=== PATIENT | female | born 1980 | race Caucasian/White ===

== ENCOUNTER → 2020-10-19 18:16 | Outpatient (BNVA) | payer BC, SELFPAY | PROVIDERS: Family Provider Family Medicine; PCP Family Medicine; Visit Provider Nurse Practitioner | DX: J02.9 Acute pharyngitis, unspecified (principal) | CPT/HCPCS: 87071; 87880 ==

== ENCOUNTER 2021-01-22 08:58 | Outpatient (CLI) | payer BC, SELFPAY ==
--- NOTE | 2021-01-22 09:03 | MM_ITS ---
WS: [id number] BILATERAL DIGITAL SCREENING MAMMOGRAPHY WITH CAD CLINICAL INFORMATION: SCREENING HISTORY: Screening mammogram. No current complaints. COMPARISON: TECHNIQUE: Bilateral CC and MLO views. FINDINGS: Scattered fibroglandular densities bilaterally. A few tiny ovoid nodules anterior left breast unchang ed. No suspicious focal mass, asymmetry, calcifications, or architectural distortion. No evidence of malignancy. MM/[place] [id number] IMPRESSION: BI-RADS: 2-Benign FOLLOW UP: 1 Year Follow-up Recommend return to annual screening mammography.
== END 2021-01-22 08:59 | disposition home or self-care (01) ==
LOC: RADSHAW 09:02
PROVIDERS: Family Provider Family Medicine; PCP Family Medicine; Visit Provider Family Medicine
DX: Z12.31 Encounter for screening mammogram for malignant neoplasm of breast (principal)
CPT/HCPCS: 77067

== ENCOUNTER 2022-10-13 17:37 | Emergency (ER) | payer BC, SELFPAY ==
[2022-10-13 17:43] VITALS: BP 145/99; PULSE 98; RESP 16; TEMP 36.4; O2SAT 95
--- NOTE | 2022-10-13 18:29 | CTR_ITS ---
PROCEDURE INFORMATION: Exam: CT Abdomen And Pelvis With Contrast Exam date and time: 10/13/2022 7:10 PM Age: 42 years old Clinical indication: Abdominal pain; Epigastric; Additional info: Abd pain, R/O infection or abscess TECHNIQUE: Imaging protocol: Computed tomography of the abdomen and pelvis with contrast. Radiation optimization: All CT scans at this facility use at least one of these dose optimization techniques: automated exposure control; mA and/or kV adjustment per patient size (includes targeted exams where dose is matched to clinical indication); or iterative reconstruction. Contrast material: OMNIPAQUE 350; Contrast volume: 100 ml; Contrast route: INTRAVENOUS (IV); REPORTING DATA: Count of CT and Cardiac NM exams in prior 12 months: This patient has received 0 known CTs and 0 known cardiac nuclear medicine studies in the 12 months prior to the current study. COMPARISON: No relevant prior studies available. RADIATION DOSE METRICS: Total DLP (mGy-cm): 1244.2 FINDINGS: Liver: Hepatic steatosis. No mass. Gallbladder and bile ducts: Normal. No calcified stones. No ductal dilation. Pancreas: Normal. No ductal dilation. Spleen: Normal. No splenomegaly. Adrenal glands: Normal. No mass. Kidneys and ureters: Normal. No hydronephrosis. Stomach and bowel: Unremarkable. No obstruction. No mucosal thickening. Appendix: No evidence of appendicitis. Intraperitoneal space: Unremarkable. No free air. No significant fluid collection. Vasculature: Unremarkable. No abdominal aortic aneurysm. Lymph nodes: Unremarkable. No enlarged lymph nodes. Urinary bladder: Unremarkable as visualized. Reproductive: IUD noted in expected positioning. Bones/joints: No acute fracture. Soft tissues: Unremarkable. CT/CT abdomen pelvis w con* [id number] IMPRESSION: 1. No acute findings. 2. Hepatic steatosis.
--- NOTE | 2022-10-13 18:29 | ED_ITS ---
HPI - General Adult General: Chief complaint: General Medical Stated complaint: Abd pains, Sweats, Chills Time Seen by Provider: 10/13/22 18:22 History of Present Illness: 42-year-old female comes in today with abdominal pain going from the stomach radiating to the back, nausea and diarrhea, symptoms started last . Patient comes in today for some persistent discomfort. Patient does have some improvement in symptoms. Patient did report a low-grade fever on Wednesday. Patient denies any chronic medical problems. Patient reports no prior abdominal surgeries. Patient does have medications alprazolam and bupropion in her medication list. Associated symptoms: Reports nausea; Deny chest pain, dyspnea, rash or vomiting Review of Systems General: Reports: 10 or more systems reviewed and unremarkable except in HPI and below Const: Reports: chills Card: Denies: chest pain Resp: Denies: dyspnea GI: Reports: nausea and diarrhea; Denies: vomiting or constipation : Denies: difficulty voiding Musc: Reports: back pain Skin/Breast: Denies: rash PFSH ED PFSH: Social History Smoking and tobacco status: never smoked Physical Exam Const: COMMON NORMALS: alert HENMT: COMMON NORMALS: normocephalic HEAD & SCALP: normocephalic Neck/C-Spine: COMMON NORMALS: full ROM Resp: COMMON NORMALS: normal respiratory effort and clear to auscultation bilaterally AUSCULTATION: clear to auscultation bilaterally Cardio: COMMON NORMALS: regular rate and regular rhythm RATE: regular rate RHYTHM: regular rhythm GI: COMMON NORMALS: Soft to palpation AUSCULTATION: Yes normoactive bowel sounds PALPATION: Yes Soft to palpation and Yes Tenderness to palpation present (GI) (Mild tenderness) : COMMON NORMALS: Yes no CVA tenderness BLADDER/KIDNEY EXAM: Yes no CVA tenderness Back/Pelvis: COMMON NORMALS: no CVA tenderness and thoracic and lumbar spine normal to inspection Extremity: COMMON NORMALS: no pedal edema Neuro: SENSORIUM/ORIENTATION: Yes alert Skin: COMMON NORMALS: turgor normal GENERAL SKIN EXAM: turgor normal Course Vital Signs: Vital signs: Vital Signs Temperature 97.6 F 10/13/22 17:43 Pulse Rate 98 10/13/22 17:43 Respiratory Rate 16 10/13/22 17:43 Blood Pressure 145/99 10/13/22 17:43 Pulse Oximetry 95 10/13/22 17:43 Oxygen Delivery Me thod 10/13/22 17:43 MDM - General Adult Medical Decision Making 42-year-old female comes in today for complaints of abdominal pain with nausea and diarrhea starting on Wednesday or last week. On exam patient's abdomen soft, normal active bowel sounds, patient appears nontoxic. Vital signs are normal except for some mild elevation of blood pressure. Differential diagnosis includes but not limited to gallbladder disease, appendicitis, gastroenteritis, viral syndrome. Laboratory values noted some elevation in liver enzymes. Lipase was normal. CBC was unremarkable. Urinalysis was contaminated with large amount of blood cells. CT scan was unremarkable. Patient was treated for some mild dehydration with 1 L of IV fluid. No signs of a surgical abdomen was noted. Reviewed exam with patient with recommendations for treatment and follow-up with primary care for further evaluation or return to the ER for worsening symptoms. Lab Data 10/13/22 18:51 10/13/22 18:51 Radiology Impressions Abdomen/Pelvis CT 10/13/22 18:29 IMPRESSION: 1. No acute findings. 2. Hepatic steatosis. Laboratory Results WBC 5.0 10^3/uL (4.0-10.0) 10/13/22 18:51 RBC 5.15 10^6/uL (4.1-5.3) 10/13/22 18:51 Hgb 15.6 g/dL (11.5-15.3) H 10/13/22 18:51 Hct 46.2 % (37.0-47.0) 10/13/22 18:51 MCV 89.7 fl (81-99) 10/13/22 18:51 MCH 30.3 pg (28.0-34.0) 10/13/22 18:51 MCHC 33.8 g/dL (30.0-36.0) 10/13/22 18:51 RDW 12.9 % (12.1-15.1) 10/13/22 18:51 Plt Count 179 10^3/cmm (130-400) 10/13/22 18:51 MPV 9.1 fL (7.4-10.4) 10/13/22 18:51 Neut % (Auto) 58.4 % 10/13/22 18:51 Lymph % (Auto) 27.5 % 10/13/22 18:51 [place] % (Auto) 12.5 % 10/13/22 18:51 Eos % (Auto) 0.8 % 10/13/22 18:51 Baso % (Auto) 0.4 % 10/13/22 18:51 Neut # (Auto) 2.89 10^3/uL (1.8-7.7) 10/13/22 18:51 Lymph # (Auto) 1.4 10^3/uL (0.8-4.8) 10/13/22 18:51 [place] # (Auto) 0.6 10^3/uL (0.2-0.9) 10/13/22 18:51 Eos # (Auto) 0.0 10^3/uL (0.0-0.8) 10/13/22 18:51 Baso # (Auto) 0.0 10^3/uL (0.0-0.1) 10/13/22 18:51 Nucleated RBC % (auto) 0 % 10/13/22 18:51 Nucleated RBCs # 0.0 /100WBC 10/13/22 18:51 Sodium 136 mmol/L (136-145) 10/13/22 18:51 Potassium 3.7 mmol/L (3.5-5.1) 10/13/22 18:51 Chloride 99 mmol/L (98-107) 10/13/22 18:51 Carbon Dioxide 25 mmol/L (22-29) 10/13/22 18:51 Anion Gap 15.7 (5-19) 10/13/22 18:51 BUN 10 mg/dL (6-20) 10/13/22 18:51 Creatinine 1.0 mg/dL (0.5-0.9) H 10/13/22 18:51 GFR Calculation 60.5 mL/min (90-130) L 10/13/22 18:51 Glucose 155 mg/dL (65-115) H 10/13/22 18:51 Calculated Osmolality 284 mOsm/kg (285-295) L 10/13/22 18:51 Calcium 9.0 mg/dL (8.5-10.5) 10/13/22 18:51 Total Bilirubin 0.5 mg/dL (0.15-1.2) 10/13/22 18:51 AST 66 U/L (0-32) H 10/13/22 18:51 ALT 90 U/L (0-33) H 10/13/22 18:51 Alkaline Phosphatase 108 U/L (35-105) H 10/13/22 18:51 Total Protein 7.2 g/dL (6.6-8.7) 10/13/22 18:51 Albumin 4.2 g/dL (3.5-5.2) 10/13/22 18:51 Globulin 3.0 g/dL (1.3-4.6) 10/13/22 18:51 Lipase 24 U/L (13-60) 10/13/22 18:51 HCG, Qual Negative (Negative) 10/13/22 18:51 Urine Color Yellow (Yellow) 10/13/22 18:40 Urine Appearance Turbid (CLEAR) A 10/13/22 18:40 Urine pH 5 (5-7) 10/13/22 18:40 Ur Specific [place] 1.015 (1.005-1.030) 10/13/22 18:40 Urine Protein Neg (Negative) 10/13/22 18:40 Urine Glucose (UA) Norm (Normal) 10/13/22 18:40 Urine Ketones Negative (Negative) 10/13/22 18:40 Urine Blood 2+ (Negative) H 10/13/22 18:40 Urine Nitrate Negative (Negative) 10/13/22 18:40 Urine Bilirubin Neg (Negative) 10/13/22 18:40 Urine Urobilinogen Norm mg/dL (Negative) 10/13/22 18:40 Ur Leukocyte Esterase Negative (Negative) 10/13/22 18:40 Urine RBC 0-4 /hpf (0-2) H 10/13/22 18:40 Urine WBC 5-10 /hpf (0-5) H 10/13/22 18:40 Ur Squamous Epith Cells 25-40 /hpf (0-5) H 10/13/22 18:40 Amorphous Sediment Not Reportable 10/13/22 18:40 Urine Bacteria 3+ /hpf (NONE) H 10/13/22 18:40 Discharge Plan Discharge Patient Disposition: Home Clinical Impression: Viral syndrome, Dehydration Condition: Stable Prescriptions: No Action bupropion HCl [Wellbutrin SR] 100 mg tablet sustained-release 12 hr 100 mg PO DAILY alprazolam [Xanax] 0.5 mg tablet 0.5 mg PO .prn Discharge Orders: Discharge ED (Routine); Ordered 10/13/22 Ordered By: Adam Bentley Referrals: Kristen Ortega MD [Primary Care Provider] - Discharge Diet: Usual diet Discharge Activity: Increase activity as tolerated Patient Instructions: Viral Syndrome (ED) Activity Restrictions/Additional Instructions: Home and rest. Drink plenty of fluids. Increase diet as tolerated. Follow-up with primary care for further evaluation and instructions. Urine was cultured if it does not grow out anything that looks like a sign of infection we will contact you for antibiotic. Return to the ER for worsening symptoms such as fever greater than 100.4, blood in vomit or stool, or uncontrolled pain. Coding Level of Care Code ED Forming Tube Selector for Samara Cornell
[2022-10-13 18:58] LABS: Basophils % 0.4 %; Eosinophils % 0.8 %; Hematocrit 46.2 % (37.0-47.0); Hemoglobin 15.6 g/dL (11.5-15.3); Lymphocytes # 1.4 10^3/uL (0.8-4.8); Lymphocytes % 27.5 %; Mean Corpuscular HGB Conc 33.8 g/dL (30.0-36.0); Mean Corpuscular Hemoglobin 30.3 pg (28.0-34.0); Mean Corpuscular Volume 89.7 fl (81-99); Mean Platelet Volume 9.1 fL (7.4-10.4); Monocytes # 0.6 10^3/uL (0.2-0.9); Monocytes % 12.5 %; Neutrophils # 2.89 10^3/uL (1.8-7.7); Neutrophils % 58.4 %; Nucleated Red Blood Cells % 0 %; Platelet Count 179 10^3/cmm (130-400); Red Blood Count 5.15 10^6/uL (4.1-5.3); Red Cell Distribution Width 12.9 % (12.1-15.1)
[2022-10-13] MEDS: sodium chloride 0.9% 1,000 ML 999 ML IV (18:59)
[2022-10-13 19:02] LABS: Add Urine Culture? No; Add Urine Microscopic? YES; Bacteria Urine 3+ /hpf; Bilirubin Urine Neg (Negative); Blood Urine 2+ (Negative); Glucose Urine UA Norm (Normal); Ketones Urine Negative (Negative); Leukocyte Esterase Urine Negative (Negative); Nitrate Urine Negative (Negative); Protein Urine Neg (Negative); RBC Urine 0-4 /hpf (0-2); Specific Gravity, Urine 1.015 (1.005-1.030); Squamous Epithelial Cell Urine 25-40 /hpf (0-5); Urine Appearance Turbid (CLEAR); Urine Color Yellow (Yellow); Urobilinogen Urine Norm (Negative); pH Urine 5 (5-7)
[2022-10-13] MEDS: iohexol 350 mg/mL 500 mL Btl (per mL) IV (19:13)
[2022-10-13 19:16] LABS: Alanine Aminotransferase 90 U/L (0-33); Albumin Level 4.2 g/dL (3.5-5.2); Alkaline Phosphatase 108 U/L (35-105); Anion Gap 15.7 (5-19); Aspartate Amino Transferase 66 U/L (0-32); Blood Urea Nitrogen 10 mg/dL (6-20); Carbon Dioxide 25 mmol/L (22-29); Chloride 99 mmol/L (98-107); Glomerular Filtration Rate 60.5 mL/min (90-130); Glucose 155 mg/dL (65-115); Lipase 24 U/L (13-60); Osmolality Calculated 284 mOsm/kg (285-295); Potassium 3.7 mmol/L (3.5-5.1); Sodium 136 mmol/L (136-145); Total Bilirubin 0.5 mg/dL (0.15-1.2); Total Protein 7.2 g/dL (6.6-8.7)
[2022-10-13 19:20] LABS: HCG, Serum Qual Negative (Negative)
== END 2022-10-13 20:00 | disposition home or self-care (01) ==
PROVIDERS: Emergency Provider Nurse Practitioner Family; PCP Family Medicine
DX: B34.9 Viral infection, unspecified (principal); E86.0 Dehydration; R41.0 Disorientation, unspecified; K76.0 Fatty (change of) liver, not elsewhere classified
CPT/HCPCS: 74177; 80053; 81001; 83690; 84703; 85025; 96360; 99285; J7030; Q9967

== ENCOUNTER → 2023-01-13 17:02 | Outpatient (BNVA) | payer BC, SELFPAY | PROVIDERS: PCP Family Medicine; Visit Provider Emergency Medicine | DX: R05.9 Cough, unspecified (principal); J20.8 Acute bronchitis due to other specified organisms; J45.21 Mild intermittent asthma with (acute) exacerbation | CPT/HCPCS: 87426 ==

== ENCOUNTER 2023-11-08 22:21 | Emergency (ER) | payer BC, SELFPAY ==
[2023-11-08 22:35] VITALS: BP 168/122; PULSE 101; RESP 18; TEMP 36.4; O2SAT 98
[2023-11-08 22:41] VITALS: BP 162/104; PULSE 86; O2SAT 95
[2023-11-08 22:48] LABS: Glucose Point of Care 308 mg/dL (70-110)
[2023-11-08 23:14] LABS: Basophils % 0.4 %; Eosinophils # 0.3 10^3/uL (0.0-0.8); Eosinophils % 2.5 %; Hematocrit 42.3 % (36-47); Lymphocytes # 2.4 10^3/uL (0.8-4.8); Lymphocytes % 23.3 %; Mean Corpuscular HGB Conc 34.5 g/dL (30-55); Mean Corpuscular Hemoglobin 31.4 pg (27-33); Mean Platelet Volume 9.5 fL (7.4-10.4); Monocytes # 0.8 10^3/uL (0.2-0.9); Monocytes % 8.2 %; Neutrophils # 6.71 10^3/uL (1.8-7.7); Neutrophils % 65.3 %; Nucleated Red Blood Cells % 0 %; Platelet Count 293 10^3/cmm (157-399); Red Blood Count 4.65 10^6/uL (3.85-5.65); Red Cell Distribution Width 12.5 % (12.1-15.1); White Blood Count 10.28 10^3/uL (3.29-11.43)
[2023-11-08 23:32] LABS: Alanine Aminotransferase 34 U/L (0-33); Albumin Level 3.9 g/dL (3.5-5.2); Alkaline Phosphatase 122 U/L (35-105); Aspartate Amino Transferase 24 U/L (0-32); Blood Urea Nitrogen 14 mg/dL (6-20); Calcium 9.5 mg/dL (8.5-10.5); Carbon Dioxide 23 mmol/L (22-29); Chloride 99 mmol/L (98-107); Creatinine Clr Calc Pharmacy 119.8047; Globulin 3.2 g/dL (1.3-4.6); Glomerular Filtration Rate 77.9 mL/min (90-130); Glucose 296 mg/dL (65-115); Osmolality Calculated 287 mOsm/kg (285-295); Sodium 133 mmol/L (136-145); Total Bilirubin 0.2 mg/dL (0.15-1.2); Total Protein 7.1 g/dL (6.6-8.7)
[2023-11-08 23:38] LABS: Anion Gap 15.4 (5-19); Potassium 4.4 mmol/L (3.5-5.1)
[2023-11-08 23:42] LABS: Ketone (Acetest) Serum Negative (Negative)
[2023-11-09 00:20] LABS: Add Urine Microscopic? NO; Charge for UA Resulting for Rev
[2023-11-09 00:30] LABS: Bilirubin Urine Neg (Negative); Blood Urine Neg (Negative); Glucose Urine UA 4+ (Normal); Ketones Urine Negative (Negative); Leukocyte Esterase Urine Negative (Negative); Nitrate Urine Negative (Negative); Protein Urine Neg (Negative); Specific Gravity, Urine 1.025 (1.005-1.030); Urine Appearance Clear (CLEAR); Urine Color Light yellow (Yellow); Urobilinogen Urine Neg (Negative); pH Urine 5 (5-7)
[2023-11-09] MEDS: amlodipine 5 mg Tablet PO (00:38)
[2023-11-09 01:00] VITALS: BP 159/107; PULSE 90; RESP 16; O2SAT 95
--- NOTE | 2023-11-09 01:27 | W.ED.GENADLT ---
HPI - General Adult General: Chief complaint: General Medical Stated complaint: Blood Sugar High Time Seen by Provider: 11/08/23 23:24 History of Present Illness: 43-year-old female presents emergency department stating that she feels ill. She states she recently had received a diagnosis of type 2 diabetes. She states that she also has a history of hypertension. She states that her primary care provider did call her in a prescription for metformin as well as losartan and she has not been able to pick those up yet. She states she has had a generalized headache throughout the day. She states the headache is a squeezing type headache that is a 3 out of 10 and throbbing. She states she has been under increased stress recently. She states she did take a metformin pill from her as she did check her sugar at home and it was found to be slightly elevated. Associated symptoms: Reports malaise Review of Systems General: Reports: 10 or more systems reviewed and unremarkable except in HPI and below Const: Reports: fatigue and malaise PFS ED PFSH: Family History (Updated 11/12/23 @ 12:13 by TOBI Alfaro) Mother Colon cancer Grandmother Cancer colon Social History (Updated 11/12/23 @ 12:13 by TOBI Alfaro) Smoking and tobacco/nicotine status: current every day tobacco/nicotine user cigarettes Alcohol intake: never Physical Exam Narrative: EXAM NARRATIVE: Constitutional: the patient appears well nourished and with normal development. Vital signs reviewed as documented. HENMT: Normocephalic, atraumatic. External ears normal appearance without drainage. Nose without drainage, normal appearance. Mucus membranes moist. Neck is supple, No jugular venous distension, trachea is midline, no appreciable carotid bruits. No lymphadenopathy. No meningeal signs. Flexion, extension and lateral rotation is without pain. Eyes: Pupils are equal, round, reactive to light and accommodation. No scleral icterus. Extra-ocular movement are intact. Thorax is symmetrical and with equal rise and fall with respirations. Resp: Lungs are clear to auscultation. No wheezes, rales, crackles or ronchi at present. Cardio: Regular rate and rhythm. Positive S1, S2. No appreciable murmurs, rubs or gallops. GI: Abdominal exam reveals normal bowel sounds to all quadrants. No organomegaly. No obvious palpable masses noted. No hepatomegally appreciated. Soft, non-tender to palpation. Extremity: Extremities are non-edematous and both femoral and pedal pulses are 2+ and equal bilaterally. Moves all extremities well, sensation in all extremities. Neuro: Alert and oriented x4, person, place, time and situation. Cranial nerves II through XII are grossly intact, there is no focal neurological deficits that I can appreciate at present. Sensation intact to all extremities. 2-point discrimination intact. Light touch intact to all extremities. Motor strength in the upper and lower extremities are equal and bilateral 5/5. Psych: Cooperative, calm, normal thought process, appropriate judgment. Skin: No lesions, rashes. No gross abnormalities noted. Back: Symmetrical, no obvious deformity, No CVA tenderness Course Vital Signs: Vital signs: Vital Signs Temperature 97.6 F 11/08/23 22:35 Pulse Rate 90 11/09/23 02:10 Respiratory Rate 18 11/09/23 02:10 Blood Pressure 132/87 11/09/23 02:10 Pulse Oximetry 95 11/09/23 02:10 Oxygen Delivery Me thod Room Air 11/09/23 01:00 [facility] - General Adult Medical Decision Making Physical exam completed and documented, I did obtain a CBC which was essentially unremarkable. The CMP demonstrated a sodium of 133 and a glucose of 296. Urinalysis was positive for 4+ glucose negative for ketones. Differential Diagnosis Medication noncompliance, diabetic ketoacidosis, dehydration, electrolyte abnormality, migraine headache, Medical Records I reviewed the patient's medical records. Lab Data I reviewed the patient's lab results. 11/08/23 23:10 11/08/23 23:10 Laboratory Results WBC 10.28 10^3/uL (3.29-11.43) 11/08/23 23:10 RBC 4.65 10^6/uL (3.85-5.65) 11/08/23 23:10 Hgb 14.60 g/dL (11.27-16.99) 11/08/23 23:10 Hct 42.3 % (36-47) 11/08/23 23:10 MCV 91.0 fl (85-98) 11/08/23 23:10 MCH 31.4 pg (27-33) 11/08/23 23:10 MCHC 34.5 g/dL (30-55) 11/08/23 23:10 RDW 12.5 % (12.1-15.1) 11/08/23 23:10 Plt Count 293 10^3/cmm (157-399) 11/08/23 23:10 MPV 9.5 fL (7.4-10.4) 11/08/23 23:10 Neut % (Auto) 65.3 % 11/08/23 23:10 Lymph % (Auto) 23.3 % 11/08/23 23:10 [place] % (Auto) 8.2 % 11/08/23 23:10 Eos % (Auto) 2.5 % 11/08/23 23:10 Baso % (Auto) 0.4 % 11/08/23 23:10 Neut # (Auto) 6.71 10^3/uL (1.8-7.7) 11/08/23 23:10 Lymph # (Auto) 2.4 10^3/uL (0.8-4.8) 11/08/23 23:10 [place] # (Auto) 0.8 10^3/uL (0.2-0.9) 11/08/23 23:10 Eos # (Auto) 0.3 10^3/uL (0.0-0.8) 11/08/23 23:10 Baso # (Auto) 0.0 10^3/uL (0.0-0.1) 11/08/23 23:10 Nucleated RBC % (auto) 0 % 11/08/23 23:10 Nucleated RBCs # 0.0 /100WBC 11/08/23 23:10 Sodium 133 mmol/L (136-145) L 11/08/23 23:10 Potassium 4.4 mmol/L (3.5-5.1) 11/08/23 23:10 Chloride 99 mmol/L (98-107) 11/08/23 23:10 Carbon Dioxide 23 mmol/L (22-29) 11/08/23 23:10 Anion Gap 15.4 (5-19) 11/08/23 23:10 BUN 14 mg/dL (6-20) 11/08/23 23:10 Creatinine 0.8 mg/dL (0.5-0.9) 11/08/23 23:10 GFR Calculation 77.9 mL/min (90-130) L 11/08/23 23:10 Glucose 296 mg/dL (65-115) H 11/08/23 23:10 POC Glucose 308 mg/dL (70-110) H 11/08/23 22:45 Calculated Osmolality 287 mOsm/kg (285-295) 11/08/23 23:10 Calcium 9.5 mg/dL (8.5-10.5) 11/08/23 23:10 Total Bilirubin 0.2 mg/dL (0.15-1.2) 11/08/23 23:10 AST 24 U/L (0-32) 11/08/23 23:10 ALT 34 U/L (0-33) H 11/08/23 23:10 Alkaline Phosphatase 122 U/L (35-105) H 11/08/23 23:10 Total Protein 7.1 g/dL (6.6-8.7) 11/08/23 23:10 Albumin 3.9 g/dL (3.5-5.2) 11/08/23 23:10 Globulin 3.2 g/dL (1.3-4.6) 11/08/23 23:10 Urine Color Light yellow (Yellow) 11/09/23 00:12 Urine Appearance Clear (CLEAR) 11/09/23 00:12 Urine pH 5 (5-7) 11/09/23 00:12 Ur Specific [place] 1.025 (1.005-1.030) 11/09/23 00:12 Urine Protein Neg (Negative) 11/09/23 00:12 Urine Glucose (UA) 4+ (Normal) H 11/09/23 00:12 Urine Ketones Negative (Negative) 11/09/23 00:12 Urine Blood Neg (Negative) 11/09/23 00:12 Urine Nitrate Negative (Negative) 11/09/23 00:12 Urine Bilirubin Neg (Negative) 11/09/23 00:12 Urine Urobilinogen Neg mg/dL (Negative) 11/09/23 00:12 Ur Leukocyte Esterase Negative (Negative) 11/09/23 00:12 Serum Ketones Negative (Negative) 11/08/23 21:03 No radiology studies performed this visit Discharge Plan Discharge Patient Disposition: Home Clinical Impression: Hypertension, uncontrolled, Controlled diabetes mellitus with hyperglycemia Condition: Stable Prescriptions: No Action bupropion HCl [Wellbutrin SR] 100 mg tablet sustained-release 12 hr 100 mg PO DAILY alprazolam [Xanax] 0.5 mg tablet 0.5 mg PO .prn sertraline 25 mg tablet PO ONCE metformin 500 mg tablet extended release 24 hr PO ONCE losartan 25 mg tablet PO ONCE omeprazole 20 mg capsule,delayed release(DR/EC) 20 mg PO .1-2 daily PRN pantoprazole [Protonix] 40 mg tablet,delayed release (DR/EC) 40 mg PO BID 42 Days Qty: 84 1RF Discharge Orders: Discharge ED (Routine); Ordered 11/09/23 Ordered By: Karson Ortega Referrals: Kristen Ortega MD [Primary Care Provider] - Discharge Diet: Diabetic Discharge Activity: Resume usual activity Patient Instructions: Opioid Safety, Pain Management Activity Restrictions/Additional Instructions: Activity Restrictions/Additional Instructions: Thank you for choosing [facility] for your healthcare needs today. Please realize that you were seen in the Emergency Department and that we are providing you with an emergency medical screening exam and this may not be a complete and all inclusive of all the testing and or medical work-up that you may need to determine your ailment or severity of your illness. It is very important that you follow-up as instructed with your Primary care provider or Specialist for additional evaluation and to discuss your medical treatment plan. You may return to the Emergency Department should you have concerns or if your condition changes or worsens in any way. Coding Level of Care Code ED Trouble Clerk for Samara Cornell
[2023-11-09 02:10] VITALS: BP 132/87; PULSE 90; RESP 18; O2SAT 95
== END 2023-11-09 02:12 | disposition home or self-care (01) ==
PROVIDERS: Emergency Medicine; Emergency Provider Internal Medicine; PCP Family Medicine
DX: I10 Essential (primary) hypertension (principal); E11.65 Type 2 diabetes mellitus with hyperglycemia; F17.210 Nicotine dependence, cigarettes, uncomplicated
CPT/HCPCS: 36415; 36416; 80053; 81003; 82009; 82962; 85025; 99283

== ENCOUNTER 2023-12-15 10:38 | Day surgery (SDC) | payer BC, SELFPAY ==
[2023-12-15 11:11] VITALS: BP 129/107; PULSE 103; RESP 18; TEMP 36.6; O2SAT 95; BMI 43.5
[2023-12-15] MEDS: sodium chloride 0.9% 1,000 ML 30 ML IV (11:23)
[2023-12-15 11:24] LABS: OR HCG Qualitative Urine Negative (Negative)
[2023-12-15 11:30] LABS: Glucose Point of Care 126 mg/dL (70-110)
--- NOTE | 2023-12-15 12:16 | P.ANESASSM_ITS ---
Pre-Anesthetic Assessment Height/Weight: Height 1.68 m Weight 122.47 kg Temp Pulse Resp BP Pulse Ox O2 Del Method 97.9 F 103 H 18 129/107 95 Room Air 12/15/23 11:11 12/15/23 11:11 12/15/23 11:11 12/15/23 11:11 12/15/23 11:11 12/15/23 11:11 Preop Diagnosis: GERD Operation Date: 12/15/23 12:00 Proposed Procedures p EGD 27052, [id number], G0121, Z12.11, K92.2(Not Applicable) - Eduardo Kim DO s Colonoscopy(Not Applicable) - Eduardo Kim DO Familial anesthetic complications: None Was Beta Pari taken within 24 hours: N/A Was Clonidine taken within 24 hours: N/A Last intake: Intake Last Liquid Date 12/14/23 Last Liquid Time 22:00 Last Solid Date 12/13/23 Last Solid Time 17:30 Social Tobacco and No alcohol 3/4 pack pack(s) per day Exam alert, oriented x 3, clear to auscultation bilaterally and regular rate & rhythm Airway Submandibular: within normal limits Cervical ROM: within normal limits Mallampati: Class II Dentition: full History/ROS No significant history except as noted and No significant complaints Pulmonary Exertional Dyspnea and Sleep Apnea CV/HEM Hypertension None reported Hepatic None reported GI Gastroesophageal Reflux Disease (Controlled with meds) Metabolic Diabetes Mellitus, Hyperlipidemia and Morbid Obesity [facility] None reported Neuropsych Anxiety and Depression Anesthetic Plan ASA status: 3 Anesthesia: Anesthesia Evaluation, General and MAC Risk of > 500 ml blood loss (7ml/kg in children): No Medications/Allergies Home Medications Medication Instructions Recorded Confirmed Last Taken Type alprazolam 0.5 mg tablet (Xanax) 0.5 mg PO PRN PRN Anxiety 10/19/20 12/15/23 Unknown History bupropion HCl 100 mg tablet,12 hr 150 mg PO DAILY 10/19/20 12/15/23 12/13/23 History sustained-release (Wellbutrin SR) losartan 25 mg tablet 25 mg PO DAILY 11/12/23 12/15/23 12/13/23 History metformin 500 mg tablet,extended 1,000 mg PO DAILY 11/12/23 12/15/23 12/13/23 History release 24 hr pantoprazole 40 mg tablet,delayed 40 mg PO BID 6 weeks #84 tabs 11/12/23 12/15/23 12/14/23 Rx release (Protonix) sertraline 25 mg tablet 25 mg PO DAILY 11/12/23 12/15/23 12/13/23 History Allergies Allergy/AdvReac Type Severity Reaction Status Date / Time Penicillins Allergy rash Verified 12/15/23 11:06 Sulfa (Sulfonamide Allergy rash Verified 12/15/23 11:06 Antibiotics) Current Medications Generic Name Dose Route Start Last Admin Trade Name Freq PRN Reason Stop Dose Admin Sodium Chloride 1,000 mls @ 30 mls/hr 12/15/23 11:00 12/15/23 11:23 Sodium Chloride 0.9% IV 12/16/23 10:59 30 mls/hr .Q24H DEONDRE Administration PFSH Anesthesia Family History (Updated 11/12/23 @ 12:13 by TOBI Alfaro) Mother Colon cancer Grandmother Cancer colon Social History (Updated 11/12/23 @ 12:13 by TOBI Alfaro) Smoking and tobacco/nicotine status: current every day tobacco/nicotine user cigarettes Alcohol intake: never Data Anesthesia Cardiac Studies: No Data to Display
--- NOTE | 2023-12-15 12:38 | PM.HP ---
Providers/Chief Complaint Primary Care Provider: Kristen Ortega MD Chief Complaint: Z12.11, K92.2 History of Present Illness Brooke Yousif is a 43 year old female Review of Systems General: Reports: 10 or more systems reviewed and unremarkable except in HPI and below Medications/Allergies Home Medications Medication Instructions Recorded Confirmed Last Taken Type alprazolam 0.5 mg tablet (Xanax) 0.5 mg PO PRN PRN Anxiety 10/19/20 12/15/23 Unknown History bupropion HCl 100 mg tablet,12 hr 150 mg PO DAILY 10/19/20 12/15/23 12/13/23 History sustained-release (Wellbutrin SR) losartan 25 mg tablet 25 mg PO DAILY 11/12/23 12/15/23 12/13/23 History metformin 500 mg tablet,extended 1,000 mg PO DAILY 11/12/23 12/15/23 12/13/23 History release 24 hr pantoprazole 40 mg tablet,delayed 40 mg PO BID 6 weeks #84 tabs 11/12/23 12/15/23 12/14/23 Rx release (Protonix) sertraline 25 mg tablet 25 mg PO DAILY 11/12/23 12/15/23 12/13/23 History Allergies Allergy/AdvReac Type Severity Reaction Status Date / Time Penicillins Allergy rash Verified 12/15/23 11:06 Sulfa (Sulfonamide Allergy rash Verified 12/15/23 11:06 Antibiotics) PFSH Acute PFSH: Medical History (Updated 12/15/23 @ 12:38 by Eduardo Kim DO) Family history of rectal cancer Family History (Updated 11/12/23 @ 12:13 by TOBI Alfaro) Mother Colon cancer Grandmother Cancer colon Social History (Updated 11/12/23 @ 12:13 by TOBI Alfaro) Smoking and tobacco/nicotine status: current every day tobacco/nicotine user cigarettes Alcohol intake: never Vitals/I&O/Wt Last Vital Signs Temp 97.9 F 12/15/23 11:11 Pulse 103 H 12/15/23 11:11 Resp 18 12/15/23 11:11 BP 129/107 12/15/23 11:11 Pulse Ox 95 12/15/23 11:11 O2 Del Method Room Air 12/15/23 11:11 Weight last 48 hrs Weight 270 lb A&P Assessment and plan (1) GI bleed: (2) GERD (gastroesophageal reflux disease): (3) Family history of rectal cancer: Plan EGD and colonoscopy Attestations Medical Necessity Statement*: Home Coding Level of Care Code Acute Code for Chg Fwd Diagnoses GI bleed K92.2 GERD (gastroesophageal reflux disease) K21.9 Family history of rectal cancer Z80.0
[2023-12-15 13:10] VITALS: BP 114/70; PULSE 88; RESP 16; TEMP 36.1; O2SAT 95
[2023-12-15 13:20] VITALS: BP 107/71; PULSE 90; RESP 16; O2SAT 90
[2023-12-15 13:26] VITALS: PULSE 86; RESP 16; O2SAT 94
--- NOTE | 2023-12-15 14:48 | ANE.PACU2 ---
Inpatient post-anesthesia follow up: Airway intact: Yes Vital signs: Temperature 97 F Pulse Rate 86 Respiratory Rate 16 Blood Pressure 107/71 Pulse Oximetry 94 Oxygen Delivery Me thod Room Air Oxygen Flow Rate 6 Fraction of Inspir ed Oxygen Hydration adequate: Yes Nausea and vomiting: No Pain level: 2 Mental status: Baseline
== END 2023-12-15 13:50 | disposition home or self-care (01) ==
PROVIDERS: Anesthesiology; PCP Family Medicine; Visit Provider Surgery
PROC: 0DJ08ZZ Inspection of Upper Intestinal Tract, Via Natural or Artificial Opening Endoscopic (ICD-10-PCS; CPT 43235; principal; 2023-12-15 12:00)
PROC: 0DJD8ZZ Inspection of Lower Intestinal Tract, Via Natural or Artificial Opening Endoscopic (ICD-10-PCS; CPT 45378; 2023-12-15 12:00)
DX: K63.89 Other specified diseases of intestine (principal); Z80.0 Family history of malignant neoplasm of digestive organs; K29.80 Duodenitis without bleeding; D12.5 Benign neoplasm of sigmoid colon; K29.50 Unspecified chronic gastritis without bleeding; F17.210 Nicotine dependence, cigarettes, uncomplicated; K21.9 Gastro-esophageal reflux disease without esophagitis; E11.9 Type 2 diabetes mellitus without complications; E78.5 Hyperlipidemia, unspecified; E66.01 Morbid (severe) obesity due to excess calories; Z68.41 Body mass index [BMI] 40.0-44.9, adult
CPT/HCPCS: 36416; 43239; 43250; 45381; 45385; 81025; 82962; 88305; J2704; J7030

== ENCOUNTER 2023-12-20 07:17 | Outpatient (CLI) | payer BC, SELFPAY ==
--- NOTE | 2023-12-20 07:37 | NMCV_ITS ---
NM gretel perf SPECT r/s* [id number] Brooke Yousif Age: 43 Gender: F : 1980 Exam Date: 12/20/2023 08:09 Ordering Phys: Kristen Ortega MD Technologist: SYLVIA Summers Exam Location: [facility] Indications: CHEST PAIN, HYPERTENSION STRESS TEST Please [facility] for [facility] IMAGE PROTOCOL Rest/Stress 1 Exercise Day Radiopharmaceutical Dose (mCi) Administration Site Administered by Rest: Tc-99m 10.6 IV SYLVIA Kolb Sestamibi Stress:Tc-99m 32.9 IV SYLVIA Kolb Sestamibi Rest: 20-Dec-2023 60 Discovery 630 Stress: 20-Dec-2023 15 Discovery 630 Radiopharmaceutical was injected at 85 % maximum heart rate. Images obtained in supine and prone position. SPECT RESULTS Technical Quality: Excellent Raw Data Analysis: Normal Image Corrections: No attenuation or motion correction applied Summed Stress Score: 0 Summed Rest Score: 1 Summed Difference Score: 0 PERFUSION FINDINGS Fairly uniform myocardial tracer uptake with no significant perfusion normalities. FUNCTIONAL RESULTS (calculated via Gated SPECT) Stress Image LV EF (%): 85 Stress EDV (mL):81 TID: 0.78 Stress ESV (mL):12 FUNCTIONAL FINDINGS: Segmental wall motion analysis revealing no gross wall motion abnormalities IMPRESSIONS 1. Myocardial perfusion imaging revealing fairly uniform myocardial tracer uptake with no significant perfusion abnormalities 2. Normal LV ejection fraction of 85%. 3. LV wall motion analysis revealing no gross wall motion abnormalities. 4. Normal LV volume Low probability for coronary ischemia, based on the above findings Dr Elza Hernandez MD FACC (Electronically Signed) Final Date: 20 Dec 2023 17:59 S
--- NOTE | 2023-12-20 07:37 | ECG_ITS ---
[facility] Test Date: 2023-12-20 Pat Name: Brooke Yousif Department: Room: Gender: Female Director Of Manufacturing Operations: : 1980 Requested By: Kristen Castano Order Number: [id number] May MD: Elza Hernandez M.D. Interpretive Statements NAME OF STUDY: EXERCISE SESTAMIBI STRESS TEST INDICATION: Chest Pain, PROCEDURE: At the baseline, the patient's blood pressure was with a heart rate of. The baseline electrocardiogram showed normal sinus rhythm with normal ST-Ts. Poor R wave progression. Low voltage complex in the precordial leads.. The patient exercised for 5 minutes and 31 seconds on a standard Magnus protocol. Patient attained a maximum heart rate of 159 beats per minute(90% of the maximum predicted heart rate) with a blood pressure at the peak exercise of 163/94 mm Hg. The EKG at the peak exercise revealed no significant changes. Patient did not have any chest pain or any significant cardiac arrhythmias with the exercise During the recovery phase, there were no new changes. Blood pressure at the end of the recovery phase was 135/90 mm Hg with a heart rate of 100 per minute. CONCLUSION: 1. No significant EKG changes with the treadmill exercise 2. No exercise-induced chest pain or cardiac arrhythmia 3. Impaired exercise tolerance, attained a maximum of 7 point METs Electronically Signed On 12-27-2023 18:17:29 CDT by Elza Hernandez M.D. [email or web address]
[2023-12-20 07:38] VITALS: BMI 43.5
[2023-12-20 09:19] VITALS: BP 135/92; PULSE 107
== END 2023-12-20 07:18 | disposition home or self-care (01) ==
PROVIDERS: PCP Family Medicine; Visit Provider Family Medicine
DX: R07.9 Chest pain, unspecified (principal); I10 Essential (primary) hypertension; E66.01 Morbid (severe) obesity due to excess calories; E11.9 Type 2 diabetes mellitus without complications
CPT/HCPCS: 36415; 78452; 93017; 96374; A9500

== ENCOUNTER 2024-11-28 07:40 | Outpatient (CLI) | payer BC, SELFPAY ==
--- NOTE | 2024-11-28 | MM_ITS ---
WS: [id number] BILATERAL 3D TOMOSYNTHESIS DIGITAL SCREENING MAMMOGRAPHY WITH CAD CLINICAL INFORMATION: ANNUAL SCREENING HISTORY: Screening mammogram. No current complaints. COMPARISON: 2020 TECHNIQUE: Bilateral CC and MLO views. FINDINGS: Scattered fibroglandular densities bilaterally. No suspicious focal mass, asymmetry, calcifications, or architectural distortion. No evidence of malignancy. Incidental punctate calcifications. MM/MM scr tomosynthesis [id number] IMPRESSION: DENSITY: There are scattered areas of fibroglandular density. BI-RADS: 2 - Benign. FOLLOW UP: 1 Year Follow-up Recommend return to annual screening mammography.
--- NOTE | 2024-11-28 07:49 | XRR_ITS ---
PROCEDURE INFORMATION: Exam: XR Thoracic Spine Exam date and time: 11/28/2024 8:07 AM Age: 44 years old Clinical indication: Pain in thoracic spine; HX of colon cancer; Additional info: Back pain TECHNIQUE: Imaging protocol: Radiologic exam of the thoracic spine. Views: 3 views. COMPARISON: CT abdomen pelvis w con* [id number] 10/13/2022 7:10 PM FINDINGS: Bones/joints: No acute fracture. Normal alignment. Mild degenerative change throughout the visualized thoracic spine. Soft tissues: Unremarkable. XR/XR thoracic spine 2V [id number] IMPRESSION: No acute osseous abnormality. Mild degenerative change throughout the visualized thoracic spine.
--- NOTE | 2024-11-28 07:49 | XRR_ITS ---
PROCEDURE INFORMATION: Exam: XR Right Ribs with PA Chest Exam date and time: 11/28/2024 8:07 AM Age: 44 years old Clinical indication: Chest wall pain; Right; HX of colon; Additional info: Back pain/dorsalgia, PT having mammo too TECHNIQUE: Imaging protocol: Radiologic exam of the right ribs with PA chest. Views: 3 views COMPARISON: CT abdomen pelvis w con* [id number] 10/13/2022 7:10 PM FINDINGS: Lungs: Unremarkable. No consolidation. Pleural spaces: Unremarkable. No pleural effusion. No pneumothorax. Heart/Mediastinum: Unremarkable. No cardiomegaly. Bones/joints: Mild degenerative change of the thoracic spine. XR/XR ribs RT mn 3V w CXR1V [id number] IMPRESSION: 1. No acute cardiopulmonary findings. 2. No displaced right rib fracture.
--- NOTE | 2024-11-28 07:49 | XRR_ITS ---
PROCEDURE INFORMATION: Exam: XR Lumbosacral Spine Exam date and time: 11/28/2024 8:07 AM Age: 44 years old Clinical indication: Low back pain; Colon cancer TECHNIQUE: Imaging protocol: Radiologic exam of the lumbosacral spine. Views: 2 or 3 views. COMPARISON: CT abdomen pelvis w con* [id number] 10/13/2022 7:10 PM FINDINGS: Bones/joints: No acute fracture. Normal alignment. Mild degenerative change of the visualized lumbar spine to include mild disc height loss and facet hypertrophy most significant at the lower lumbar spine. Soft tissues: Unremarkable. XR/XR lumbar spine 2-3V* [id number] IMPRESSION: No acute osseous abnormality. Lower lumbar spondylosis.
== END 2024-11-28 07:41 | disposition home or self-care (01) ==
LOC: RAD 07:46
PROVIDERS: PCP Family Medicine; Visit Provider Family Medicine
DX: Z12.31 Encounter for screening mammogram for malignant neoplasm of breast (principal); R92.323 Mammographic fibroglandular density, bilateral breasts; R92.1 Mammographic calcification found on diagnostic imaging of breast; M47.894 Other spondylosis, thoracic region; M47.896 Other spondylosis, lumbar region; M51.369 Other intervertebral disc degeneration, lumbar region without mention of lumbar back pain or lower extremity pain; R93.7 Abnormal findings on diagnostic imaging of other parts of musculoskeletal system
CPT/HCPCS: 71101; 72070; 72100; 77063; 77067